=== PATIENT | male | born 1980 | race Caucasian/White ===

== ENCOUNTER 2018-10-30 11:59 | Emergency (ER) | payer OTHER ==
[~2018-10-30] VITALS: Ht 180.3 cm; Wt 113.4 kg
[~2018-10-30 11:59] MED LIST: CIPROFLOXIN HC2.5 M1 OPHTHALMIC; NORCO 5-325 TA1 EAC1 PO
[2018-10-30 12:05] VITALS: BP 138/85
[2018-10-30] MEDS ORDERED: BACTRIM DS TAB1 EACH PO (12:17)
[2018-10-30] MEDS ORDERED: KEFLEX500 M1 PO (12:17)
[2018-10-30] MEDS ORDERED: NORCO 5-325 TA1 EACH PO (12:19)
== END 2018-10-30 12:27 | disposition home or self-care (01) ==
LOC: M.ERS 11:59
DX: L03.116 Cellulitis of left lower limb (principal); F17.210 Nicotine dependence, cigarettes, uncomplicated

== ENCOUNTER 2019-07-02 16:32 | Emergency (ER) | payer OTHER ==
[~2019-07-02] VITALS: Ht 180.3 cm; Wt 113.4 kg
[~2019-07-02 16:32] MED LIST changes: +BACTRIM DS TAB1 EACH PO; +KEFLEX500 M1 PO; +NORCO 5-325 TA1 EACH PO
[2019-07-02] MEDS ORDERED: NORCO 5-325 TA1 EAC1 PO (18:20)
[2019-07-02] MEDS ORDERED: AUGMENTIN 875-1 EACH PO (18:20)
[2019-07-02 18:51] VITALS: BP 130/85
== END 2019-07-02 18:52 | disposition home or self-care (01) ==
LOC: M.ERS 16:32
DX: S51.811A Laceration without foreign body of right forearm, initial encounter (principal); W54.0XXA Bitten by dog, initial encounter; Y93.89 Activity, other specified; Y92.89 Other specified places as the place of occurrence of the external cause; Y99.8 Other external cause status

== ENCOUNTER 2020-11-06 17:26 | Emergency (ER) | payer OTHER ==
[~2020-11-06] VITALS: Ht 180.3 cm; Wt 104.3 kg
[~2020-11-06 17:26] MED LIST changes: +AUGMENTIN 875-1 EACH PO
[2020-11-06 17:35] VITALS: BP 145/104
[2020-11-06] MEDS ORDERED: KEFLEX500 M1 PO (17:52)
== END 2020-11-06 18:52 | disposition home or self-care (01) ==
LOC: M.ERS 17:26
DX: S60.351A Superficial foreign body of right thumb, initial encounter (principal); Z98.890 Other specified postprocedural states; W22.8XXA Striking against or struck by other objects, initial encounter; Y93.89 Activity, other specified; Y92.89 Other specified places as the place of occurrence of the external cause; Y99.8 Other external cause status

== ENCOUNTER 2021-02-28 05:26 | Emergency (ER) | payer OTHER ==
[~2021-02-28] VITALS: Ht 180.3 cm; Wt 108.9 kg
[2021-02-28] MEDS ORDERED: HYDROCODON-ACE1 EAC8 PO (05:47)
[2021-02-28] MEDS ORDERED: AMOXICILLIN 50500 M1 PO (05:47)
[2021-02-28 05:50] VITALS: BP 176/94
== END 2021-02-28 05:50 | disposition home or self-care (01) ==
LOC: M.ERS 05:26
DX: K02.9 Dental caries, unspecified (principal); K04.1 Necrosis of pulp

== ENCOUNTER 2021-03-18 01:02 | Emergency (ER) | payer OTHER ==
[~2021-03-18] VITALS: Ht 180.3 cm; Wt 108.9 kg
[~2021-03-18 01:02] MED LIST changes: +AMOXICILLIN 50500 M1 PO; +HYDROCODON-ACE1 EAC8 PO
[2021-03-18 01:11] VITALS: BP 170/102
[2021-03-18] MEDS ORDERED: PENICILLIN V P500 MG PO (01:38)
[2021-03-18] MEDS ORDERED: ACETAMINOPHEN-1 EAC2 PO (01:38)
[2021-03-18] MEDS ORDERED: IBUPROFEN 800800 MG PO (01:38)
== END 2021-03-18 01:59 | disposition home or self-care (01) ==
LOC: M.ERS 01:02
DX: A69.1 Other Vincent's infections (principal); Z98.890 Other specified postprocedural states

== ENCOUNTER 2021-07-20 06:27 | Emergency (ER) | payer OTHER ==
[~2021-07-20] VITALS: Ht 180.3 cm; Wt 104.3 kg
[~2021-07-20 06:27] MED LIST changes: +ACETAMINOPHEN-1 EAC2 PO; +IBUPROFEN 800800 MG PO; +PENICILLIN V P500 MG PO
[2021-07-20 07:49] LABS: ABSOLUTE EOSINOPHILS 0.1 thou/uL (0.0-0.7); ABSOLUTE LYMPHOCYTES 1.9 thou/uL (0.8-5.3); ABSOLUTE MONOCYTES 0.5 thou/uL (0.0-1.2); ABSOLUTE NEUTROPHILS 5.9 thou/uL (1.6-8.1); BASOPHILS 0.5 %; HEMATOCRIT 40.4 % (42.0-52.0); HEMOGLOBIN 13.9 gm/dL (14.0-18.0); LYMPHOCYTES 22.6 %; MCH 29.3 pg (26.0-34.0); MCHC 34.4 g/dL (28.0-37.0); MONOCYTES 6.2 %; MPV 7.3 fl. (7.2-11.1); NUCLEATED RBCS 0 /100WBC; PLATELET COUNT* 268 thou/uL (150-400); POLYS 69.7 %; RBC 4.75 mil/uL (4.50-6.00); RDW-CV 14.2 % (10.5-14.5); WBC 8.5 thou/uL (4.0-11.0)
[2021-07-20 07:54] LABS: ANION GAP < 0 mmol/L (7-16); BUN 14 mg/dL (7-18); CALCIUM 8.7 mg/dL (8.5-10.1); CHLORIDE 108 mmol/L (98-107); CO2 29 mmol/L (21-32); GLUCOSE 107 mg/dL (70-99); SODIUM 136 mmol/L (136-145)
[2021-07-20 07:59] LABS: ALBUMIN 3.7 g/dL (3.4-5.0); ALKALINE PHOSPHATASE 115 U/L (46-116); SGOT 13 U/L (15-37); SGPT 30 U/L (30-65); TOTAL BILIRUBIN 0.6 mg/dL (<0.1-1.0); TOTAL PROTEIN 7.7 g/dL (6.4-8.2)
[2021-07-20] MEDS ORDERED: CEPHALEXIN500 MG PO (09:51)
[2021-07-20] MEDS ORDERED: BACTRIM DS TAB1 EACH PO (09:51)
[2021-07-20] MEDS ORDERED: XARELTO20 MG PO (09:51)
[2021-07-20] MEDS ORDERED: XARELTO15 MG PO (09:51)
[2021-07-20 10:01] VITALS: BP 134/72
== END 2021-07-20 10:02 | disposition home or self-care (01) ==
LOC: M.ERS 06:27
PROVIDERS: Family Medicine
DX: L03.116 Cellulitis of left lower limb (principal); L97.828 Non-pressure chronic ulcer of other part of left lower leg with other specified severity; Z86.718 Personal history of other venous thrombosis and embolism; Z79.899 Other long term (current) drug therapy